=== PATIENT | male | born 1980 | race Caucasian/White ===

== ENCOUNTER 2018-12-30 07:05 | Emergency (ER) | payer MEDICAID ==
[~2018-12-30] VITALS: Ht 165.1 cm; Wt 86.6 kg
[2018-12-30 07:12] VITALS: BP 143/68
--- NOTE | 2018-12-30 07:15 | NUR ---
PT AMBULATED TO ER BED 11
--- NOTE | 2018-12-30 08:00 | NUR ---
PT AWAKE, A&O X4. NO S/S OF DISTRESS. PT C/O LEFT EYE PAIN AND ITCHING LASTING 3 DAYS. FEELS LIKE SOMETHING HAS BEEN IN HIS EYE FOR 3 WEEKS. REDNESS, SWELLING, TO L EYE. SIDE RAIL UP, V/S STABLE. WILL CONTINUE TO MONITOR.
[2018-12-30 08:15] VITALS: BP 122/76
--- NOTE | 2018-12-30 08:15 | NUR ---
Patient discharged with v/s stable. Written and verbal after care instructions given and explained. Patient alert, oriented and verbalized understanding of instructions. Ambulatory with steady gait. All questions addressed prior to discharge. ID band removed. Patient advised to follow up with PMD. Rx of ERYTHROMYCIN 0.5% OPTHALMIC OINTMENT, CLINDAMYCIN 150 MG CAPSULE, KETOTIFEN EYE DROPS given. Patient educated on indication of medication including possible reaction and side effects. Opportunity to ask questions provided and answered.
== END 2018-12-30 08:15 | disposition home or self-care (01) ==
LOC: MED 07:05
DX: H01.00B Unspecified blepharitis left eye, upper and lower eyelids (principal); F17.200 Nicotine dependence, unspecified, uncomplicated; Z88.0 Allergy status to penicillin
CPT/HCPCS: 99283